=== PATIENT | female | born 1990 | race Caucasian/White ===

== ENCOUNTER 2016-12-08 09:59 | Emergency (ER) | payer MEDICAID, MEDICARE ==
[2016-12-08 10:08] VITALS: BP 117/78; PULSE 66; RESP 16; TEMP 98.9; O2SAT 100
[2016-12-08 10:27] LABS: BLOOD, URINE NEG (NEG); GLUCOSE,URINE NEG (NEG); KETONE, URINE NEG (NEG); NITRITE,URINE NEG (NEG); PH, URINE 6.5 (5.0-8.5)
--- NOTE | 2016-12-08 10:43 | PD ---
HPI Chief Complaint: Complaint Time Seen by Provider: 10:30 Travel History International Travel<30 days: No Contact w/Intl Traveler<30days: No Traveled to known affect area: No History of Present Illness HPI This patient complains of pelvic pain. It's located in the suprapubic region. Duration 2 days. Severity is moderate. No vaginal bleeding or discharge or fever. She had a spontaneous miscarriage approximately 6 months ago. She is sexually active not using protection. No alleviating factors PFSH Past Medical History ?: Not LMP: 11/10/16 Past Surgical History Section: Yes Social History Alcohol Use: No Tobacco Use: Yes Substance Use: No Allergies-Medications (Allergen,Severity, Reaction): Coded Allergies: Penicillin (Verified Allergy, Unknown, Hives, 12/08/16) Reported Meds & Prescriptions Reported Meds & Active Scripts Active No Active Prescriptions or Reported Medications Review of Systems General / Constitutional: No: Fever Eyes: No: Visual changes HENT: No: Headaches Cardiovascular: No: Chest Pain or Discomfort Respiratory: No: Shortness of Breath Gastrointestinal: No: Abdominal Pain Genitourinary: Positive: Pelvic Pain, No: Dysuria Musculoskeletal: No: Pain Skin: No Rash Neurologic: No: Weakness Psychiatric: No: Depression Endocrine: No: Polydipsia Hematologic/Lymphatic: No: Easy Bruising Physical Exam Narrative GENERAL: Well-nourished, well-developed patient with pelvic cramps. SKIN: Warm and dry. HEAD: Atraumatic. Normocephalic. EYES: Pupils equal and round. No scleral icterus. No injection or drainage. ENT: No nasal bleeding or discharge. Mucous membranes pink and moist. NECK: Trachea midline. No JVD. CARDIOVASCULAR: Regular rate and rhythm. No murmur appreciated. RESPIRATORY: No accessory muscle use. Clear to auscultation. Breath sounds equal bilaterally. GASTROINTESTINAL: Abdomen soft, mild suprapubic tenderness , nondistended. Hepatic and splenic margins not palpable. MUSCULOSKELETAL: No obvious deformities. No clubbing. No cyanosis. No edema. NEUROLOGICAL: Awake and alert. No obvious cranial nerve deficits. Motor grossly within normal limits. Normal speech. PSYCHIATRIC: Appropriate mood and affect; insight and judgment normal. Pelvic: Speculum exam reveals no blood or discharge in the vault. No cervical motion tenderness. Data Data Last Documented VS Vital Signs Date Time Temp Pulse Resp B/P Pulse Ox O2 Delivery O2 Flow Rate FiO2 12/08/16 10:08 98.9 66 16 117/78 100 Orders Urinalysis - C+S If Indicated (12/08/16 10:10) Complete Blood Count With Diff (12/08/16 10:55) Beta Hcg (Quant/Titer) (12/08/16 10:55) Us Pelvis (Ques Pr/Ect)W Trans (12/08/16 ) Labs Laboratory Tests Test 12/08/16 12/08/16 10:06 11:00 Urine Collection Type CLEAN CATCH Urine Color YELLOW Urine Turbidity CLEAR Urine pH 6.5 Urine Specific [place] 1.005 Urine Protein NEG mg/dL Urine Glucose (UA) NEG mg/dL Urine Ketones NEG mg/dL Urine Occult Blood NEG Urine Nitrite NEG Urine Bilirubin NEG Urine Leukocyte Esterase TRACE Urine WBC 0-2 /hpf Urine Squamous Epithelial 0-5 /hpf Cells Microscopic Urinalysis Comment CULT NOT INDICATED Urine Collection Time 10:06 White Blood Count 6.0 TH/MM3 Red Blood Count 4.98 MIL/MM3 Hemoglobin 14.2 GM/DL Hematocrit 42.0 % Mean Corpuscular Volume 84.4 FL Mean Corpuscular Hemoglobin 28.5 PG Mean Corpuscular Hemoglobin 33.8 % Concent Red Cell Distribution Width 13.4 % Platelet Count 251 TH/MM3 Mean Platelet Volume 8.8 FL Neutrophils (%) (Auto) 62.6 % Lymphocytes (%) (Auto) 25.6 % Monocytes (%) (Auto) 9.3 % Eosinophils (%) (Auto) 1.7 % Basophils (%) (Auto) 0.8 % Neutrophils # (Auto) 3.8 TH/MM3 Lymphocytes # (Auto) 1.5 TH/MM3 Monocytes # (Auto) 0.6 TH/MM3 Eosinophils # (Auto) 0.1 TH/MM3 Basophils # (Auto) 0.0 TH/MM3 CBC Comment DIFF FINAL Differential Comment Human Chorionic Gonadotropin, 349 MIU/ML Quant MDM Medical Decision Making Medical Screen Exam Complete: Yes Emergency Medical Condition: Yes Medical Record Reviewed: Yes Differential Diagnosis Ectopic , PID, ovarian cyst Narrative Course I have reviewed the patient's electronic medical record. Urine is positive I did a bedside transabdominal ultrasound and I could not identify an intrauterine fetus CBC is normal Beta hCG is 349 I reviewed the case in detail with [facility] physician on-call. Formal transvaginal radiology ultrasound was done which did not reveal an intrauterine fetus but a thickened endometrial stripe. There is some enlargement adnexa but there is no pole or ectopic seen. Patient clinically is asymptomatic. Recommendation is given for a repeat visit in 2 days for a repeat beta hCG to see if the titer is doubling. She will come back to the ER because she does not have a primary care or [facility] physician that she can follow-up with a timely fashion. She is given ectopic precautions and if she has any clinical worsening she will come back right away Diagnosis Primary Impression: Pelvic pain affecting in first trimester, antepartum Additional Instructions: The patient was advised to follow up in 2 days in the ER for repeat blood draw Return sooner for significant worsening pain or significant vaginal bleeding Med/Other Pt SpecificInfo: Other Scripts No Active Prescriptions or Reported Meds Disposition: 01 DISCHARGE HOME Condition: Stable Ryan Rodriguez MD Dec 08, 2016 10:43
[2016-12-08 10:47] LABS: METHOD OF COLLECTION CLEAN CATCH; URINE COLOR YELLOW (YELLW/STRAW); WBC, URINE 0-2 /hpf (0-5)
[2016-12-08 10:48] LABS: COMMENT (UR) CULT NOT INDICATED; CULTURE IF INDICATED CULT NOT INDICATED; SQUAMOUS EPITHELIAL CELL URINE 0-5 /hpf (0-5)
[2016-12-08 11:25] LABS: AUTOMATED NEUTROPHIL # 3.8 TH/MM3 (1.8-7.7); BASOPHIL % 0.8 % (0.0-2.0); EOSINOPHIL # 0.1 TH/MM3 (0-0.4); EOSINOPHIL % 1.7 % (0.0-4.0); HEMO FLAGS DIFF FINAL; LYMPH % 25.6 % (9.0-44.0); LYMPHOCYTE # 1.5 TH/MM3 (1.0-4.8); MEAN CELL VOLUME 84.4 FL (80.0-100.0); MEAN CORPUSCULAR HEMOGLOBIN 28.5 PG (27.0-34.0); MEAN CORPUSCULAR HGB CONC 33.8 % (32.0-36.0); MONO % 9.3 % (0.0-8.0); NEUT % 62.6 % (16.0-70.0); PLATELET COUNT 251 TH/MM3 (150-450); RED BLOOD COUNT 4.98 MIL/MM3 (4.00-5.30); RED CELL DISTRIBUTION WIDTH 13.4 % (11.6-17.2)
[2016-12-08 11:36] LABS: BETA HCG QUANT 349 MIU/ML (0-5)
--- NOTE | 2016-12-08 13:34 | RADHPO ---
EXAM DATE/TIME: 12/08/2016 12:52 [facility] COMPARISON: No previous studies available for comparison. INDICATIONS : Pelvic pain. LAB(S): Beta-hC MEDICAL HISTORY : . SURGICAL HISTORY : section. ENCOUNTER: Initial ACUITY: 1 day PAIN SCORE: 3/10 LOCATION: Right pelvis MEASUREMENTS: UTERUS: 7.6 x 4.3 x 5.2 cm ENDOMETRIAL STRIPE: 13 mm RIGHT OVARY: 4.0 x 3.4 x 2.8 cm LEFT OVARY: 2.3 x 1.8 x 2.5 cm FINDINGS: There is thickening of the endometrial stripe but no evidence of intrauterine . There is a c ystic mass in the right adnexa measuring 2.4 x 1.9 CM but no pole or yolk sac is identified. Sm all amount of fluid is present within the cul-de-sac. The left ovary and adnexa appear normal. CONCLUSION: 1. No evidence of intrauterine . Ectopic or early intrauterine cannot be excluded. Romulo Guerrero MD on December 08, 2016 at 13:28 Board Certified Radiologist. This report was verified electronically.
== END 2016-12-08 14:00 | disposition home or self-care (01) ==
LOC: PHEFT 09:59
DX: O26.891 Other specified pregnancy related conditions, first trimester (principal); R10.2 Pelvic and perineal pain; Z72.0 Tobacco use
CPT/HCPCS: 76700; 76817; 81001; 84702; 85025

== ENCOUNTER 2016-12-09 19:16 | Emergency (ER) | payer MEDICARE ==
[~2016-12-09] VITALS: Ht 170.2 cm; Wt 63.8 kg
[2016-12-09 19:18] VITALS: BP 109/80; PULSE 88; RESP 20; TEMP 98.6; O2SAT 100
[2016-12-09 22:10] LABS: AUTOMATED NEUTROPHIL # 3.5 TH/MM3 (1.8-7.7); BASOPHIL # 0.3 TH/MM3 (0-0.2); BASOPHIL % 4.4 % (0.0-2.0); EOSINOPHIL # 0.1 TH/MM3 (0-0.4); EOSINOPHIL % 2.2 % (0.0-4.0); HEMATOCRIT 36.9 % (35.0-46.0); HEMO FLAGS DIFF FINAL; LYMPH % 33.3 % (9.0-44.0); LYMPHOCYTE # 2.3 TH/MM3 (1.0-4.8); MEAN CELL VOLUME 84.5 FL (80.0-100.0); MEAN CORPUSCULAR HEMOGLOBIN 28.7 PG (27.0-34.0); MEAN CORPUSCULAR HGB CONC 33.9 % (32.0-36.0); NEUT % 51.1 % (16.0-70.0); PLATELET COUNT 226 TH/MM3 (150-450); RED BLOOD COUNT 4.36 MIL/MM3 (4.00-5.30); RED CELL DISTRIBUTION WIDTH 13.3 % (11.6-17.2); WHITE BLOOD COUNT 6.8 TH/MM3 (4.0-11.0)
[2016-12-09 22:15] LABS: CHLORIDE 107 MEQ/L (98-107); POTASSIUM 4.2 MEQ/L (3.5-5.1); SODIUM (NA) 139 MEQ/L (136-145)
--- NOTE | 2016-12-09 22:17 | PD ---
HPI Chief Complaint: Abdominal Pain Time Seen by Provider: 21:38 Travel History International Travel<30 days: No Contact w/Intl Traveler<30days: No Traveled to known affect area: No History of Present Illness HPI The patient is a 26-year-old female, G6, P3, A2 who was diagnosed as being yesterday and was told return to the emergency room today for repeat studies. Apparently, her beta titer was so low that a definitive ultrasound could not be done. Her beta hCG yesterday at 11 AM was 349. She complains of bilateral pelvic pain. She does have a history of IV drug abuse and comes from [place], she thinks she will be down here 2 or 3 weeks. PFSH Past Medical History Tetanus Vaccination: > 5 Years Influenza Vaccination: No ?: LMP: 11/14/16 : 6 Para: 3 Ectopic : Yes Dilation and Curettage (D&C): Yes Past Surgical History Section: Yes Social History Alcohol Use: No Tobacco Use: Yes (12ppd) Substance Use: No Allergies-Medications (Allergen,Severity, Reaction): Coded Allergies: Penicillin (Verified Allergy, Unknown, Hives, 12/09/16) Reported Meds & Prescriptions Reported Meds & Active Scripts Active No Active Prescriptions or Reported Medications Review of Systems Except as stated in HPI: all other systems reviewed are Neg Physical Exam Narrative GENERAL: The patient is alert, oriented 3 in slight apparent distress with her bilateral pelvic pain. Her vital signs are normal. SKIN: Warm and dry. Old needle tracks are present on both arms, I do not see any infected needle tracks or any recent needle tracks. HEAD: Atraumatic. Normocephalic. EYES: Pupils equal and round. No scleral icterus. No injection or drainage. ENT: No nasal bleeding or discharge. Mucous membranes pink and moist. NECK: Trachea midline. No JVD. CARDIOVASCULAR: Regular rate and rhythm. No murmur appreciated. RESPIRATORY: No accessory muscle use. Clear to auscultation. Breath sounds equal bilaterally. GASTROINTESTINAL: Abdomen soft, with tenderness to direct palpation over the bilateral pelvis, nondistended. Hepatic and splenic margins not palpable. No guarding or rebound is present. MUSCULOSKELETAL: No obvious deformities. No clubbing. No cyanosis. No edema. NEUROLOGICAL: Awake and alert. No obvious cranial nerve deficits. Motor grossly within normal limits. Normal speech. PSYCHIATRIC: Appropriate mood and affect; insight and judgment normal. Data Data Last Documented VS Vital Signs Date Time Temp Pulse Resp B/P Pulse Ox O2 Delivery O2 Flow Rate FiO2 12/09/16 19:18 98.6 88 20 109/80 100 Orders Beta Hcg (Quant/Titer) (12/09/16 21:38) Complete Blood Count With Diff (12/09/16 21:38) Comprehensive Metabolic Panel (12/09/16 21:38) Labs Laboratory Tests Test 12/09/16 22:02 White Blood Count 6.8 TH/MM3 Red Blood Count 4.36 MIL/MM3 Hemoglobin 12.5 GM/DL Hematocrit 36.9 % Mean Corpuscular Volume 84.5 FL Mean Corpuscular Hemoglobin 28.7 PG Mean Corpuscular Hemoglobin 33.9 % Concent Red Cell Distribution Width 13.3 % Platelet Count 226 TH/MM3 Mean Platelet Volume 8.9 FL Neutrophils (%) (Auto) 51.1 % Lymphocytes (%) (Auto) 33.3 % Monocytes (%) (Auto) 9.0 % Eosinophils (%) (Auto) 2.2 % Basophils (%) (Auto) 4.4 % Neutrophils # (Auto) 3.5 TH/MM3 Lymphocytes # (Auto) 2.3 TH/MM3 Monocytes # (Auto) 0.6 TH/MM3 Eosinophils # (Auto) 0.1 TH/MM3 Basophils # (Auto) 0.3 TH/MM3 CBC Comment DIFF FINAL Differential Comment Sodium Level 139 MEQ/L Potassium Level 4.2 MEQ/L Chloride Level 107 MEQ/L Carbon Dioxide Level 23.7 MEQ/L Anion Gap 8 MEQ/L Blood Urea Nitrogen 15 MG/DL Creatinine 0.74 MG/DL Estimat Glomerular Filtration 93 ML/MIN Rate Random Glucose 84 MG/DL Calcium Level 8.4 MG/DL Total Bilirubin 0.2 MG/DL Aspartate Amino Transf 33 U/L (AST/SGOT) Alanine Aminotransferase 45 U/L (ALT/SGPT) Alkaline Phosphatase 62 U/L Total Protein 8.0 GM/DL Albumin 3.4 GM/DL Human Chorionic Gonadotropin, 588 MIU/ML Quant MDM Medical Decision Making Medical Screen Exam Complete: Yes Emergency Medical Condition: Yes Medical Record Reviewed: Yes Interpretation(s) The CBC is normal. The complete metabolic profile shows a calcium of 8.4 but is otherwise normal. The beta-hCG is 588. Differential Diagnosis Anterior uterine pregnancyearly, ectopic , threatened AB Narrative Course At this time the is still too early to have a definitive ultrasound. She should wait about 4 days and return for repeat ultrasound. She should also make an appointment with OB. At this time the rate of progression is within normal limits for an intrauterine . An ectopic cannot be diagnosed or ruled out at this time because, just as yesterday, it is simply too early. Plan: The patient should return in 3 or 4 days for repeat beta titer and possible ultrasound. Diagnosis Primary Impression: Pelvic pain affecting in first trimester, antepartum Additional Instructions: As we discussed, return in 3 or 4 days in the ultrasound should be more definitive. We should also repeat a beta titer. Also, set up an appointment with an wellness instructor. At this time the rate of progression of your hormone level is consistent with an intrauterine . This certainly does not rule out an ectopic . If the pain is severe return to the emergency department immediately. Take plain Tylenol for pain. Med/Other Pt SpecificInfo: No Change to Meds Scripts No Active Prescriptions or Reported Meds Disposition: 01 DISCHARGE HOME Condition: Stable Layo Perez MD Dec 09, 2016 22:17
[2016-12-09 22:18] LABS: ANION GAP 8 MEQ/L (5-15); BICARBONATE 23.7 MEQ/L (21.0-32.0); BLOOD UREA NITROGEN 15 MG/DL (7-18)
[2016-12-09 22:21] LABS: ALT (GPT) 45 U/L (10-53); AST (GOT) 33 U/L (15-37); GLOMERULAR FILTRATION RATE 93 ML/MIN (>89)
[2016-12-09 22:23] LABS: TOTAL BILIRUBIN ADULT 0.2 MG/DL (0.2-1.0)
[2016-12-09 22:24] LABS: ALKALINE PHOSPHATASE 62 U/L (45-117)
[2016-12-09 22:27] LABS: BETA HCG QUANT 588 MIU/ML (0-5)
[2016-12-09 22:50] VITALS: BP 108/77; PULSE 82; RESP 16; O2SAT 99
[2016-12-09 23:39] VITALS: BP 106/73
== END 2016-12-09 23:39 | disposition home or self-care (01) ==
LOC: PHED 19:16
DX: O26.891 Other specified pregnancy related conditions, first trimester (principal); R10.2 Pelvic and perineal pain; F19.21 Other psychoactive substance dependence, in remission
CPT/HCPCS: 80053; 84702; 85025; 99284

== ENCOUNTER 2016-12-12 09:09 | Emergency (ER) | payer MEDICAID, MEDICARE ==
[~2016-12-12] VITALS: Ht 154.9 cm; Wt 64.0 kg
[2016-12-12 09:10] VITALS: BP 103/54; PULSE 71; RESP 16; TEMP 98.1; O2SAT 100
--- NOTE | 2016-12-12 09:58 | PD ---
HPI Chief Complaint: Related Problem Time Seen by Provider: 09:48 Travel History International Travel<30 days: No Contact w/Intl Traveler<30days: No Traveled to known affect area: No History of Present Illness HPI 26-year-old G6, P3, A2 here for repeat beta Quant. Patient has had one previous left tubal treated surgically and a 4 month miscarriage. For the last week she has had pressure and pain in the left lower quadrant and pelvis. No bleeding. Pain is mild to moderate, able to take Tylenol with improvement of her symptoms. She denies any urinary symptoms. She was seen here in our emergency department twice recently. Initial beta Quant in the 300s , transvaginal ultrasound showing no evidence of intra-or extrauterine . She was seen 24 hours later with beta Quant in the 500s. She was instructed to come back to the emergency department in 4 days for repeat beta Quant and potentially ultrasound. PFSH Past Medical History Tetanus Vaccination: < 5 Years ?: LMP: 11/03 : 6 Para: 3 Ectopic : Yes Dilation and Curettage (D&C): Yes Past Surgical History Section: Yes Gynecologic Surgery: Yes (tubal ) Social History Alcohol Use: No Tobacco Use: Yes (1/2ppd) Substance Use: No Allergies-Medications (Allergen,Severity, Reaction): Coded Allergies: Penicillin (Verified Allergy, Unknown, Hives, 12/12/16) Reported Meds & Prescriptions Reported Meds & Active Scripts Active No Active Prescriptions or Reported Medications Review of Systems Except as stated in HPI: all other systems reviewed are Neg Physical Exam Narrative GENERAL: Well-appearing female in no acute distress SKIN: Warm and dry. HEAD: Normocephalic. EYES: No scleral icterus. No injection or drainage. ENT: Mucous membranes pink and moist. NECK: Supple CARDIOVASCULAR: Regular rate and rhythm. RESPIRATORY: No accessory muscle use. GASTROINTESTINAL: Abdomen soft, mild left lower quadrant tenderness to palpation without rebound or guarding MUSCULOSKELETAL: Normal gait NEUROLOGICAL: Awake and alert. Normal speech. PSYCHIATRIC: Appropriate mood and affect; insight and judgment normal. Data Data Last Documented VS Vital Signs Date Time Temp Pulse Resp B/P Pulse Ox O2 Delivery O2 Flow Rate FiO2 12/12/16 09:10 98.1 71 16 103/54 100 Room Air Orders Beta Hcg (Quant/Titer) (12/12/16 09:49) Acetaminophen (Tylenol) (12/12/16 10:00) Us Pelvis (Ques Pr/Ect)W Trans (12/12/16 09:58) Labs Laboratory Tests Test 12/12/16 10:10 Human Chorionic Gonadotropin, 1586 MIU/ML Quant MDM Medical Decision Making Medical Screen Exam Complete: Yes Emergency Medical Condition: Yes Medical Record Reviewed: Yes Differential Diagnosis 26-year-old female G6, P3, A2 here with complaint of left lower quadrant pelvic pain without bleeding, known . Previous left tubal . Differential includes , ectopic , threatened AB, missed AB, inevitable AB. Patient has had recent urinalysis without evidence of UTI. Narrative Course Beta Quant on 12/08/16 was 349, 12/09/16 was 588. Beta Quant today was 1586. Repeat ultrasound showed tiny sonolucent cystic area in the endometrium too small to characterize as gestational sac. Right ovarian cyst. Free fluid. Patient was reassured. Her beta Quant continues to rise appropriately. She was recommended to follow-up with [facility] to establish care for this . Diagnosis Primary Impression: Pelvic pain affecting in first trimester, antepartum Referrals: [facility] call for appointment Physiotherapy Practice Manager call for appointment Additional Instructions: Follow-up with [facility] to establish care for this as discussed. Beta Quant today was 1586. Repeat ultrasound showed tiny sonolucent cystic area in the endometrium too small to characterize as gestational sac. Right ovarian cyst. Free fluid. Follow-up with [facility] to establish care for this . Med/Other Pt SpecificInfo: No Change to Meds Scripts No Active Prescriptions or Reported Meds Disposition: 01 DISCHARGE HOME Condition: Stable Loni Mardid MD Dec 12, 2016 09:58
[2016-12-12] MEDS ORDERED: ACETAMINOPHEN 500 MG CPLT PO ONE (10:00)
[2016-12-12 11:04] LABS: BETA HCG QUANT 1586 MIU/ML (0-5)
--- NOTE | 2016-12-12 13:04 | RADRPT ---
EXAM DATE/TIME: 12/12/2016 12:08 [facility] COMPARISON: No previous studies available for comparison. INDICATIONS : Left pelvic pain. LAB(S): Beta-hC,586 MEDICAL HISTORY : . Prior left tubal . SURGICAL HISTORY : section. Dilation and curettage. ENCOUNTER: Subsequent ACUITY: 3 days PAIN SCORE: 6/10 LOCATION: Bilateral pelvis MEASUREMENTS: UTERUS: 8.5 x 4.3 x 5.2 cm ENDOMETRIAL STRIPE: 12 mm RIGHT OVARY: 3.8 x 2.3 x 2.6 cm LEFT OVARY: 2.8 x 1.4 x 1.8 cm FINDINGS: The uterus is normal size and configuration and in the endometrium there is a tiny cystic area too sm all to calculate as to the possibility gestational sac with no pole or yolk sac appreciated. Th ere is in the right ovary a 2.3 cm cyst in is not free fluid adjacent to the right ovary in the cul-d e-sac. CONCLUSION: Tiny sonolucent cystic area in the endometrium too small to characterize as to possible gestational s ac. Right ovarian cysts. Free fluid. Fer Méndez MD on December 12, 2016 at 13:00 Board Certified Radiologist. This report was verified electronically.
== END 2016-12-12 13:46 | disposition home or self-care (01) ==
LOC: NEPD 09:09
DX: O26.891 Other specified pregnancy related conditions, first trimester (principal); R10.2 Pelvic and perineal pain; N83.201 Unspecified ovarian cyst, right side; F17.200 Nicotine dependence, unspecified, uncomplicated; Z87.42 Personal history of other diseases of the female genital tract; Z3A.00 Weeks of gestation of pregnancy not specified
CPT/HCPCS: 76700; 76817; 84702

== ENCOUNTER 2016-12-14 14:26 | Emergency (ER) | payer MEDICAID ==
[~2016-12-14] VITALS: Ht 154.9 cm; Wt 64.0 kg
[2016-12-14 14:35] VITALS: BP 95/70; PULSE 103; RESP 16; TEMP 98.2; O2SAT 100
--- NOTE | 2016-12-14 15:28 | PD ---
HPI Chief Complaint: Related Problem Time Seen by Provider: 15:12 Travel History International Travel<30 days: No Contact w/Intl Traveler<30days: No Traveled to known affect area: No History of Present Illness HPI This 26-year-old female is complaining of suprapubic pain. She is and has been seen here several times the last week. She is 5, para 3 area 6 months ago she had a ectopic on her left side of the was removed laparoscopically. She is now again. She was here on the at which time her titer was 389 ultrasound was unremarkable. She was here on the that time her beta titer was 1586. An ultrasound showed a small cystic area in the endometriumto small to characterize as a gestational sac. She says that yesterday she had a small amount of vomiting. She continues to have pain which he says seems to be getting worse. The left side. PFSH Past Medical History ?: LMP: 11/07/2016- 5 WEEKS, 2 DAYS BY DATES : 6 Para: 3 Ectopic : Yes Dilation and Curettage (D&C): Yes Past Surgical History Section: Yes Gynecologic Surgery: Yes (tubal ) Social History Alcohol Use: No Tobacco Use: Yes (2ppd) Substance Use: No Allergies-Medications (Allergen,Severity, Reaction): Coded Allergies: Penicillin (Verified Allergy, Unknown, Hives, 12/14/16) Reported Meds & Prescriptions Reported Meds & Active Scripts Active No Active Prescriptions or Reported Medications Review of Systems General / Constitutional: No: Fever, Chills Eyes: No: Diploplia HENT: No: Headaches, Vertigo Cardiovascular: No: Chest Pain or Discomfort, Palpitations Respiratory: No: Cough Gastrointestinal: No: Vomiting, Diarrhea Genitourinary: Positive: Vaginal Bleeding Musculoskeletal: No: Myalgias Physical Exam Narrative GENERAL: Well-developed female SKIN: Warm and dry. HEAD: Atraumatic. Normocephalic. EYES: Pupils equal and round. No scleral icterus. No injection or drainage. ENT: No nasal bleeding or discharge. Mucous membranes pink and moist. NECK: Trachea midline. No JVD. CARDIOVASCULAR: Regular rate and rhythm. No murmur appreciated. RESPIRATORY: No accessory muscle use. Clear to auscultation. Breath sounds equal bilaterally. GASTROINTESTINAL: Abdomen soft, non-tender, nondistended. Hepatic and splenic margins not palpable. : Cervical os is closed. There is some whitish discharge present there is pain with bimanual exam. No masses are felt MUSCULOSKELETAL: No obvious deformities. No clubbing. No cyanosis. No edema. NEUROLOGICAL: Awake and alert. No obvious cranial nerve deficits. Motor grossly within normal limits. Normal speech. PSYCHIATRIC: Appropriate mood and affect; insight and judgment normal. Data Data Last Documented VS Vital Signs Date Time Temp Pulse Resp B/P Pulse Ox O2 Delivery O2 Flow Rate FiO2 12/14/16 14:35 98.2 103 16 95/70 100 MDM Medical Decision Making Medical Screen Exam Complete: Yes Emergency Medical Condition: Yes Medical Record Reviewed: Yes Differential Diagnosis Differential includes ectopic , threatened AB, normal Narrative Course Patient is at high risk for ectopic as she had one recently. In spite of 2 ultrasounds that has not yet been ruled out so we will have to repeat her beta titer and her ultrasound Scripts No Active Prescriptions or Reported Meds Yemi Holt MD Dec 14, 2016 15:28
[2016-12-14 15:47] LABS: AUTOMATED NEUTROPHIL # 4.2 TH/MM3 (1.8-7.7); BASOPHIL # 0.1 TH/MM3 (0-0.2); BASOPHIL % 1.5 % (0.0-2.0); EOSINOPHIL # 0.1 TH/MM3 (0-0.4); EOSINOPHIL % 1.7 % (0.0-4.0); HEMATOCRIT 37.1 % (35.0-46.0); LYMPH % 27.4 % (9.0-44.0); LYMPHOCYTE # 1.8 TH/MM3 (1.0-4.8); MEAN CELL VOLUME 85.4 FL (80.0-100.0); MEAN CORPUSCULAR HEMOGLOBIN 29.3 PG (27.0-34.0); MEAN CORPUSCULAR HGB CONC 34.3 % (32.0-36.0); MONO % 6.7 % (0.0-8.0); NEUT % 62.7 % (16.0-70.0); PLATELET COUNT 213 TH/MM3 (150-450); RED BLOOD COUNT 4.35 MIL/MM3 (4.00-5.30); RED CELL DISTRIBUTION WIDTH 13.1 % (11.6-17.2); WHITE BLOOD COUNT 6.6 TH/MM3 (4.0-11.0)
[2016-12-14 15:54] LABS: HEMO FLAGS AUTO DIFF
[2016-12-14 16:19] LABS: BETA HCG QUANT 3373 MIU/ML (0-5)
[2016-12-14 16:50] LABS: BLOOD, URINE NEG (NEG); GLUCOSE,URINE NEG (NEG); KETONE, URINE NEG (NEG); NITRITE,URINE NEG (NEG)
--- NOTE | 2016-12-14 16:55 | RADHPO ---
EXAM DATE/TIME: 12/14/2016 15:53 [facility] COMPARISON: US PELVIS (QUEST PREG/ECTOPIC) W/TRANSVAG, December 12, 2016, 12:08. INDICATIONS : Pelvic pain and spotting. LAB(S): Beta-hC,373 MEDICAL HISTORY : . Left tubal . SURGICAL HISTORY : section. D&C. Left tubal removal. ENCOUNTER: Subsequent ACUITY: 4-6 days PAIN SCORE: 8/10 LOCATION: Bilateral pelvis MEASUREMENTS: UTERUS: 8.3 x 5.1 x 4.6 cm ENDOMETRIAL STRIPE: 15 mm RIGHT OVARY: 3.6 x 3.4 x 2.3 cm LEFT OVARY: 1.8 x 2.5 x 1.5 cm FINDINGS: UTERUS: Uterus is normal in morphology. There is a thickened endometrium present with an eccentrically positi oned rounded anechoic structure consistent with a gestational sac. The mean sac diameter measures 0.3 4 cm, unchanged from the exam of December 12, 2016. RIGHT OVARY: Ovary contains no mass or significant cystic lesion.Again noted a normal-appearing corpus luteum with in the right ovary. LEFT OVARY: Ovary contains no mass or significant cystic lesion. MISCELLANEOUS: There is a persistent small amount of uncomplicated-appearing free fluid. CONCLUSION: Ultrasound findings consistent with an intrauterine . The mean sac diameter is unchanged fro m the prior exam. This could represent a failed , however, recommend close interval followup with repeat imaging in approximately 2-4 days to evaluate for interval change and possible developme nt of a yolk sac. The free fluid seen within the posterior cul-de-sac remain small and uncomplicated. No evidence of adnexal mass to suggest ectopic . Perla Urrutia MD on December 14, 2016 at 16:47 Board Certified Radiologist. This report was verified electronically.
[2016-12-14 17:02] LABS: METHOD OF COLLECTION CLEAN CATCH; URINE COLOR YELLOW (YELLW/STRAW)
[2016-12-14 17:06] LABS: COMMENT (UR) CULT NOT INDICATED; SQUAMOUS EPITHELIAL CELL URINE 0-5 /hpf (0-5)
[2016-12-14 17:13] LABS: PLATELET ESTIMATE SMEAR NORMAL (NORMAL); PLATELET MORPHOLOGY NORMAL (NORMAL); SCAN/DIFF AUTO DIFF CONFIRMED
[2016-12-14] MEDS ORDERED: metroNIDAZOLE 500 MG TAB PO ONE (17:15)
[2016-12-14] MEDS ORDERED: ACETAMINOPHEN 325 MG TAB PO ONE (17:15)
--- NOTE | 2016-12-14 17:19 | PD ---
Physical Exam Narrative Received from previous team to follow up US and lab results. 26y F with suprapubic pain and has been here multiple times. Pelvic US is consistent with an intrauterine . However, the sac diameter is unchanged from prior exam and could represent a failed . Recommend close follow up with repeat image in 2-4 days. No evidence of adnexal mass to suggest ectopic . Labs reviewed, no leukocytosis. bHCG 3373. UA showed no leukocyte or nitrite. Clue cells presents, pt given metronidazole 500mg PO. Type and screen showed O positive. Data Data Last Documented VS Vital Signs Date Time Temp Pulse Resp B/P Pulse Ox O2 Delivery O2 Flow Rate FiO2 12/14/16 14:35 98.2 103 16 95/70 100 Orders Beta Hcg (Quant/Titer) (12/14/16 15:23) Complete Blood Count With Diff (12/14/16 15:23) Gc And Chlamydia Pcr (12/14/16 15:23) Complete Rh (12/14/16 15:23) Us Pelvis (Ques Pr/Ect)W Trans (12/14/16 ) Wet Prep Profile (12/14/16 15:23) Ua Includes Microscopic (12/14/16 15:23) Acetaminophen (Tylenol) (12/14/16 17:15) Metronidazole (Flagyl) (12/14/16 17:15) Labs Laboratory Tests Test 12/14/16 12/14/16 12/14/16 15:32 15:35 16:45 White Blood Count 6.6 TH/MM3 Red Blood Count 4.35 MIL/MM3 Hemoglobin 12.8 GM/DL Hematocrit 37.1 % Mean Corpuscular Volume 85.4 FL Mean Corpuscular Hemoglobin 29.3 PG Mean Corpuscular Hemoglobin 34.3 % Concent Red Cell Distribution Width 13.1 % Platelet Count 213 TH/MM3 Mean Platelet Volume 9.2 FL Neutrophils (%) (Auto) 62.7 % Lymphocytes (%) (Auto) 27.4 % Monocytes (%) (Auto) 6.7 % Eosinophils (%) (Auto) 1.7 % Basophils (%) (Auto) 1.5 % Neutrophils # (Auto) 4.2 TH/MM3 Lymphocytes # (Auto) 1.8 TH/MM3 Monocytes # (Auto) 0.4 TH/MM3 Eosinophils # (Auto) 0.1 TH/MM3 Basophils # (Auto) 0.1 TH/MM3 CBC Comment AUTO DIFF Differential Comment AUTO DIFF CONFIRMED Platelet Estimate NORMAL Platelet Morphology Comment NORMAL Red Cell Morphology Comment NORMAL Human Chorionic Gonadotropin, 3373 MIU/ML Quant Blood Type O POSITIVE Rho(D) Type POSITIVE Clue Cells (Wet Prep) PRESENT Vaginal Trichomonas (Wet Prep) NONE SEEN Vaginal Yeast (Wet Prep) NONE SEEN Urine Collection Type CLEAN CATCH Urine Color YELLOW Urine Turbidity CLEAR Urine pH 6.0 Urine Specific [place] 1.014 Urine Protein NEG mg/dL Urine Glucose (UA) NEG mg/dL Urine Ketones NEG mg/dL Urine Occult Blood NEG Urine Nitrite NEG Urine Bilirubin NEG Urine Leukocyte Esterase NEG Urine Squamous Epithelial 0-5 /hpf Cells Microscopic Urinalysis Comment CULT NOT INDICATED Urine Collection Time 1645 MDM Supervised Visit with KARLY: No Diagnosis Primary Impression: Abnormal in first trimester Additional Impression: Bacterial vaginosis Referrals: Sandra De La Fuente MD 2 days Abnormal ultrasound finding with [facility] [place] [facility] Patient Instructions: General Instructions Departure Forms: Tests/Procedures Additional Instruction: Please follow up with OBGYN or ED in 2 days for repeat ultrasound. Return to the ED if symptoms worsen. Med/Other Pt SpecificInfo: Prescription(s) given Scripts Metronidazole 500 Mg [id number] Mg PO BID 7 Days Ref 0 Prov:Michelle Colunga DO 12/14/16 Disposition: 01 DISCHARGE HOME Condition: Stable Michelle Colunga DO Dec 14, 2016 17:19
[2016-12-14] MEDS ORDERED: METR500T10 PO (18:19)
[2016-12-14 18:38] VITALS: BP 92/54
[2016-12-14 19:00] LABS: CHLAMYDIA PCR NOT DETECTED (NOT DETECT); NEISSERIA PCR NOT DETECTED (NOT DETECT)
== END 2016-12-14 18:43 | disposition home or self-care (01) ==
LOC: PHED 14:26
DX: O23.91 Unspecified genitourinary tract infection in pregnancy, first trimester (principal); O26.891 Other specified pregnancy related conditions, first trimester; N76.0 Acute vaginitis; B96.6 Bacteroides fragilis [B. fragilis] as the cause of diseases classified elsewhere; Z3A.01 Less than 8 weeks gestation of pregnancy
CPT/HCPCS: 76700; 76817; 81001; 84702; 85025; 86901; 87210; 87491; 87591

== ENCOUNTER 2016-12-16 08:42 | Emergency (ER) | payer MEDICAID ==
[~2016-12-16] VITALS: Ht 154.9 cm; Wt 64.0 kg
[~2016-12-16 08:42] MED LIST: METR500T10 PO
[2016-12-16 08:57] VITALS: BP 109/61; PULSE 68; RESP 16; TEMP 98.9; O2SAT 100
--- NOTE | 2016-12-16 09:19 | PD ---
HPI Chief Complaint: Related Problem Time Seen by Provider: 09:01 Travel History International Travel<30 days: No Contact w/Intl Traveler<30days: No Traveled to known affect area: No History of Present Illness HPI This patient returns for her fifth visit in the last week.The patient was seen and examined in the presence of the nurse. I reviewed all of her lab studies and ultrasounds and notes from the last week. She doesn't have insurance and is so keeps going back to the emergency room. She's had some intermittent pelvic cramping but has no discharge or bleeding or fever. She says she was told to come back to the emergency room to get repeat testing. Symptoms severity is mild. PFSH Past Medical History ?: LMP: 11/07/16 : 6 Para: 3 Ectopic : Yes Dilation and Curettage (D&C): Yes Past Surgical History Section: Yes Gynecologic Surgery: Yes (tubal ) Social History Alcohol Use: No Tobacco Use: Yes (12ppd) Substance Use: No Allergies-Medications (Allergen,Severity, Reaction): Coded Allergies: Penicillin (Verified Allergy, Unknown, Hives, 12/16/16) Reported Meds & Prescriptions Reported Meds & Active Scripts Active Metronidazole 500 Mg Tab 500 Mg PO BID 7 Days Review of Systems General / Constitutional: No: Fever HENT: No: Headaches Cardiovascular: No: Chest Pain or Discomfort Respiratory: No: Cough Physical Exam Narrative GASTROINTESTINAL: Abdomen soft, non-tender, nondistended. Positive bowel sounds. No hepato-splenomegaly, or palpable masses. No guarding. SKIN: Inspection shows no rash or ulcers. Palpation shows no induration or nodules. NECK: Symmetrical appearance, midline trachea. No mass or crepitus. Thyroid without enlargement, tenderness, or mass. Data Data Last Documented VS Vital Signs Date Time Temp Pulse Resp B/P Pulse Ox O2 Delivery O2 Flow Rate FiO2 12/16/16 08:57 98.9 68 16 109/61 100 MDM Medical Decision Making Medical Screen Exam Complete: Yes Emergency Medical Condition: Yes Medical Record Reviewed: Yes Differential Diagnosis IUP, pelvic pain, miscarriage Narrative Course I have reviewed the patient's electronic medical record. As noted, I reviewed every note from the prior 4 visits this week Patient's last ultrasound revealed changes consistent with IUP. It was too early for dating or to establish heartbeat. No evidence of ectopic. Each beta titer she's had, 4 in total, have properly doubled. I don't see any indication or value from repeating an ultrasound or beta titer today. Needs to focus on obtaining care. Ectopic has been ruled out. Diagnosis Primary Impression: Pelvic pain affecting in first trimester, antepartum Additional Instructions: Follow-up with [facility] Take daily vitamin Med/Other Pt SpecificInfo: Other Disposition: 01 DISCHARGE HOME Condition: Stable Ryan Rodriguez MD Dec 16, 2016 09:19
== END 2016-12-16 09:38 | disposition home or self-care (01) ==
LOC: PHED 08:42
DX: O26.891 Other specified pregnancy related conditions, first trimester (principal); R10.2 Pelvic and perineal pain; F17.210 Nicotine dependence, cigarettes, uncomplicated
CPT/HCPCS: 99281

== ENCOUNTER 2016-12-21 12:43 | Emergency (ER) | payer MEDICAID ==
[~2016-12-21] VITALS: Ht 154.9 cm; Wt 64.5 kg
[2016-12-21 12:45] VITALS: BP 135/76; PULSE 108; RESP 18; TEMP 98; O2SAT 99
[2016-12-22] MEDS ORDERED: TRICTAB PO (02:02)
[2016-12-22] MEDS ORDERED: CEPH-460 PO (04:01)
== END 2016-12-21 14:25 | disposition left against medical advice (07) ==
LOC: NED 12:43
DX: O26.891 Other specified pregnancy related conditions, first trimester (principal); R10.9 Unspecified abdominal pain
CPT/HCPCS: 99281

== ENCOUNTER 2016-12-21 16:53 | Emergency (ER) | payer MEDICAID ==
[~2016-12-21] VITALS: Ht 154.9 cm; Wt 64.5 kg
[2016-12-21 22:37] VITALS: BP 102/58; PULSE 70; RESP 14; TEMP 98; O2SAT 100
[2016-12-22] MEDS ORDERED: TRICTAB PO (02:02)
[2016-12-22 02:12] VITALS: BP 97/46; PULSE 79; RESP 20; O2SAT 100
--- NOTE | 2016-12-22 02:43 | PD ---
HPI Chief Complaint: Abdominal Pain Time Seen by Provider: 02:14 Travel History International Travel<30 days: No Contact w/Intl Traveler<30days: No Traveled to known affect area: No History of Present Illness HPI 26-year-old female 6 para 3 with (1 ectopic, 1 D&C) believed to be 8 weeks arrives for the 7th time in 13 days. She states she is here because she doesn't have insurance and cannot establish follow up with on-call referral obstetricians. She states on her previous visit to [facility] the prior doctor "did nothing." The patient told the triage nurse that she fell and has abdominal pain during my examination she reports no such fall however discusses pain in her lower abdomen. She also has pain in her back. She denies vaginal bleeding and vaginal discharge. She's had no fever or vomiting. PFSH Past Medical History Tetanus Vaccination: < 5 Years Influenza Vaccination: No ?: LMP: 11/07/2016 : 6 Para: 3 Miscarriage: 2 Ectopic : Yes Dilation and Curettage (D&C): Yes Past Surgical History Section: Yes Gynecologic Surgery: Yes (tubal ) Social History Alcohol Use: No Tobacco Use: Yes (1/2ppd) Substance Use: No Allergies-Medications (Allergen,Severity, Reaction): Coded Allergies: Penicillin (Verified Allergy, Unknown, Hives, 12/22/16) Reported Meds & Prescriptions Reported Meds & Active Scripts Active Keflex (Cephalexin) 500 Mg Cap 500 Mg PO Q12H 7 Days Reported ( Vit-Ferrous Fumarate) 1 Tab Tab 1 Tab PO DAILY Review of Systems Except as stated in HPI: all other systems reviewed are Neg Physical Exam Narrative GENERAL: 26 yo F, pleasant, NAD, WNWND SKIN: Warm and dry. HEAD: Atraumatic. Normocephalic. EYES: Pupils equal and round. No scleral icterus. No injection or drainage. ENT: No nasal bleeding or discharge. Mucous membranes pink and moist. NECK: Trachea midline. No JVD. CARDIOVASCULAR: Regular rate and rhythm. No murmur appreciated. RESPIRATORY: No accessory muscle use. Clear to auscultation. Breath sounds equal bilaterally. GASTROINTESTINAL: Soft. Negative Ozuna's sign. No tenderness at McBurney's point. MUSCULOSKELETAL: No obvious deformities. No clubbing. No cyanosis. No edema. NEUROLOGICAL: Awake and alert. No obvious cranial nerve deficits. Motor grossly within normal limits. Normal speech. PSYCHIATRIC: Appropriate mood and affect; insight and judgment normal. Data Data Last Documented VS Vital Signs Date Time Temp Pulse Resp B/P Pulse Ox O2 Delivery O2 Flow Rate FiO2 12/22/16 02:12 79 20 97/46 100 Room Air 12/21/16 22:37 98.0 VS reviewed Orders Beta Hcg (Quant/Titer) (12/22/16 02:37) Urinalysis - C+S If Indicated (12/22/16 02:37) Labs Laboratory Tests Test 12/22/16 12/22/16 03:00 03:10 Urine Color LIGHT-YELLOW Urine Turbidity HAZY Urine pH 6.0 Urine Specific [place] 1.009 Urine Protein NEG mg/dL Urine Glucose (UA) NEG mg/dL Urine Ketones NEG mg/dL Urine Occult Blood NEG Urine Nitrite NEG Urine Bilirubin NEG Urine Urobilinogen LESS THAN 2.0 MG/DL Urine Leukocyte Esterase NEG Urine RBC LESS THAN 1 /hpf Urine WBC 1 /hpf Urine Squamous Epithelial 8 /hpf Cells Urine Renal Epithelial Cells <1 /hpf Urine Bacteria RARE /hpf Urine Mucus FEW /lpf Microscopic Urinalysis Comment CULT NOT INDICATED Human Chorionic Gonadotropin, 04306 MIU/ML Quant MDM Medical Decision Making Medical Screen Exam Complete: Yes Emergency Medical Condition: Yes Differential Diagnosis IUP, UTI, ectopic , ov torsion, appendicitis, TOA, cervicitis, BV, Trichomoniasis, ov cyst, hernia, mittelschmerz, pain from menstruation Narrative Course Urinalysis revealed bacteriuria Beta hCG is 18,060 with a level from 10 days prior of 3373 Patient has had an appropriate increase in beta hCG. Upon reassessment at 0350 the patient is resting comfortably and feels better, is alert and in no distress. The patients results and examination findings were discussed. The repeat examination is unremarkable and benign. The history , exam, diagnostic testing, and current condition do not suggest any significant pathology to warrant further testing, continued ED treatment, admission, or surgical evaluation at this point. The vital signs have been stable. The patient does not have uncontrollable pain, intractable vomiting, or other significant symptoms. The patient's condition is stable and appropriate for discharge. The patient will pursue further outpatient evaluation with a primary care physician or other designated or consulting physician as indicated in the discharge instructions. The patient expressed understanding and was agreeable with this plan. Diagnosis Primary Impression: Pelvic pain affecting in first trimester, antepartum Additional Impression: Asymptomatic bacteriuria Referrals: Cata Knapp MD 2 days Additional Instructions: You have a choice when it comes to health care, and we are glad that you chose [facility]. Hopefully, we have met your expectations on today's visit. You are welcome to return to [facility] at any time, as we are committed to meeting the health care needs of our community. Med/Other Pt SpecificInfo: Prescription(s) given Scripts Cephalexin (Keflex)500 Mg Nsl000 Mg PO Q12H 7 Days Ref 0 Prov:Osmany Ochoa MD 12/22/16 Disposition: 01 DISCHARGE HOME Condition: Stable Osmany Ochoa MD Dec 22, 2016 02:43
[2016-12-22 03:24] LABS: BACTERIA, URINE RARE /hpf; BLOOD, URINE NEG (NEG); COMMENT (UR) CULT NOT INDICATED; CULTURE IF INDICATED CULT NOT INDICATED; GLUCOSE,URINE NEG (NEG); KETONE, URINE NEG (NEG); MUCUS URINE FEW /lpf (OCC); NITRITE,URINE NEG (NEG); RENAL EPITHELIAL CELLS <1 /hpf; SQUAMOUS EPITHELIAL CELL URINE 8 /hpf (0-5); URINE COLOR LIGHT-YELLOW (YELLW/STRAW)
[2016-12-22 03:57] LABS: BETA HCG QUANT 18060 MIU/ML (0-5)
[2016-12-22] MEDS ORDERED: CEPH-460 PO (04:01)
[2016-12-22 04:11] VITALS: BP 100/54
== END 2016-12-22 04:22 | disposition home or self-care (01) ==
LOC: NEPC 16:53
DX: O26.891 Other specified pregnancy related conditions, first trimester (principal); R10.2 Pelvic and perineal pain; Z3A.08 8 weeks gestation of pregnancy
CPT/HCPCS: 81001; 84702; 99284